=== PATIENT | female | born 1975 | race Caucasian/White ===

== ENCOUNTER 2018-05-28 23:54 | Inpatient (IN) | payer OTHER ==
[~2018-05-28] VITALS: Ht 162.6 cm; Wt 52.6 kg
[2018-05-29 00:45] LABS: BASO # 0.1 10^3/uL (0.0-0.2); BASO % 0.7 % (0.0-1.0); EOS % 0.1 % (0.0-3.0); HEMATOCRIT 29.9 % (36.0-47.0); HEMOGLOBIN 9.7 g/dl (12.0-15.5); LYMPH # 2.9 10^3/uL (1.5-4.5); LYMPH % 22.1 % (24.0-44.0); MEAN CORPUSCULAR HEMOGLOBIN 26.8 pg (27.0-33.0); MEAN CORPUSCULAR HGB CONC 32.4 g/dl (32.0-36.5); MEAN CORPUSCULAR VOLUME 82.6 fl (80.0-96.0); MONO # 1.7 10^3/uL (0.0-0.8); MONO % 13.4 % (0.0-5.0); NEUTROPHILS # 8.2 10^3/uL (1.8-7.7); NEUTROPHILS % 63.3 % (36.0-66.0); PLATELET COUNT, AUTOMATED 483 10^3/uL (150-450); RED BLOOD COUNT 3.62 10^6/uL (4.00-5.40); WHITE BLOOD COUNT 12.9 10^3/uL (4.0-10.0)
[2018-05-29 01:04] LABS: AMPHETAMINES LEVEL URINE NEGATIVE (NEGATIVE); BARBITURATES URINE NEGATIVE (NEGATIVE); BENZODIAZEPINES URINE POSITIVE (NEGATIVE); CANNABINOIDS URINE NEGATIVE (NEGATIVE); COCAINE METABOLITE URINE NEGATIVE (NEGATIVE); METHADONE URINE NEGATIVE (NEGATIVE); OPIATES URINE NEGATIVE (NEGATIVE); PHENCYCLIDINE URINE NEGATIVE (NEGATIVE)
[2018-05-29 01:11] LABS: ACETAMINOPHEN LEVEL < 2.0 UG/ML (10.0-30.0); ALBUMIN 4.1 GM/DL (3.2-5.2); ALT/SGPT 30 U/L (12-78); BILIRUBIN,DIRECT < 0.1 MG/DL (0.0-0.2); BILIRUBIN,TOTAL 0.3 MG/DL (0.2-1.0); BLOOD UREA NITROGEN 16 MG/DL (7-18); CALCIUM LEVEL 8.5 MG/DL (8.5-10.1); CARBON DIOXIDE LEVEL 19 MEQ/L (21-32); CHLORIDE LEVEL 104 MEQ/L (98-107); CPK CREATINE PHOSPHOKINASE 824 U/L (26-192); CREATININE FOR GFR 0.66 MG/DL (0.55-1.30); ETHYL ALCOHOL (ETHANOL) 0.298 % (0.000-0.010); GLOMERULAR FILTRATION RATE > 60.0 (>58); GLUCOSE, FASTING 88 MG/DL (70-100); POTASSIUM SERUM 3.5 MEQ/L (3.5-5.1); SALICYLATE LEVEL < 1.7 MG/DL (5.0-30.0); SODIUM LEVEL 139 MEQ/L (136-145); TOTAL PROTEIN 7.6 GM/DL (6.4-8.2)
[2018-05-29 01:15] LABS: HCG, SERUM QUALITATIVE NEGATIVE (NEGATIVE)
[2018-05-29] MEDS ORDERED: NS 1,000 ML IV ONE ×2 (02:00)
[2018-05-29] MEDS ORDERED: VITATAB73 PO (06:07)
[2018-05-29] MEDS ORDERED: HAIR1CHW PO (06:07)
[2018-05-29] MEDS ORDERED: KEPP1TAB PO (06:07)
[2018-05-29] MEDS ORDERED: VIST50CA PO (06:07)
[2018-05-29] MEDS ORDERED: VITA200016 PO (06:07)
[2018-05-29] MEDS ORDERED: LEXA1TAB PO (06:07)
[2018-05-29] MEDS ORDERED: BENA25TA10 PO (06:07)
[2018-05-29] MEDS ORDERED: levETIRAcetam 250MG TABLET (KEPPRA) PO ONE (07:30)
[2018-05-29] MEDS ORDERED: ESCITALOPRAM OXALATE 10 MG TAB (LEXAPRO) PO ONE (07:30)
[2018-05-29 08:56] LABS: BLOOD UREA NITROGEN 12 MG/DL (7-18); CALCIUM LEVEL 7.2 MG/DL (8.5-10.1); CARBON DIOXIDE LEVEL 24 MEQ/L (21-32); CHLORIDE LEVEL 111 MEQ/L (98-107); CPK CREATINE PHOSPHOKINASE 579 U/L (26-192); CREATININE FOR GFR 0.49 MG/DL (0.55-1.30); GLOMERULAR FILTRATION RATE > 60.0 (>58); GLUCOSE, FASTING 83 MG/DL (70-100); POTASSIUM SERUM 3.7 MEQ/L (3.5-5.1); SODIUM LEVEL 143 MEQ/L (136-145); TROPONIN I < 0.02 NG/ML (< 0.10)
[2018-05-29] MEDS ORDERED: THIAMINE 100 MG TAB PO SCH ×2 (09:00→21:00)
[2018-05-29] MEDS ORDERED: FOLIC ACID 1 MG TAB PO SCH (09:00)
[2018-05-29] MEDS ORDERED: MULTIVITAMINS/MINERALS THERAP 1 TAB PO SCH (09:00)
[2018-05-29] MEDS ORDERED: levETIRAcetam 250MG TABLET (KEPPRA) PO SCH (09:00)
[2018-05-29] MEDS ORDERED: ESCITALOPRAM OXALATE 10 MG TAB (LEXAPRO) PO SCH (09:00)
[2018-05-29] MEDS ORDERED: LORazepam 2 MG TAB PO PRN ×2 (09:30→13:45)
[2018-05-29] MEDS ORDERED: SENN18TA PO (13:06)
[2018-05-29] MEDS ORDERED: MILK120011 PO (13:06)
[2018-05-29] MEDS ORDERED: COLA100C5 PO (13:06)
[2018-05-29] MEDS ORDERED: CYCL10TA PO (13:06)
[2018-05-29] MEDS ORDERED: LACT10SO29 PO (13:06)
[2018-05-29] MEDS ORDERED: MAALOX 30 ML SUSP *UDC PO PRN (13:15)
[2018-05-29] MEDS: VITAMIN D 1,000 INTERNATIONAL UNITS TABLET PO SCH (14:47)
[2018-05-29 15:30] VITALS: BP 123/77
--- NOTE | 2018-05-29 19:12 | ECGEPIP ---
Stationary ECG Study [facility] - ED Test Date: 2018-05-29 Pat Name: KAILYN NEWMAN Department: Room: - Gender: F Acute Care Nurse Practitioner: af : 1975 Requested By: HERON AVALOS Order Number: [id number] Reading MD: Armond Trujillo Measurements Intervals [place] Rate: 109 P: 65 UT: 154 QRS: 53 QRSD: 87 T: 50 QT: 371 QTc: 501 Interpretive Statements SINUS TACHYCARDIA NONSPECIFIC T-WAVE ABNORMALITY ABNORMAL RHYTHM ECG PROLONGED QTC NO OLD ECG Electronically Signed On 05-29-2018 19:12:31 EST by Armond Trujillo
[2018-05-29] MEDS ORDERED: IBUPROFEN 600 MG TAB PO PRN (19:15)
[2018-05-29] MEDS ORDERED: LACTULOSE 20 GM/30 ML SYRUP UD PO PRN (19:15)
[2018-05-29] MEDS: CYCLOBENZAPRINE 10 MG TAB PO SCH (20:18)
[2018-05-29] MEDS: diphenhydrAMINE 25 MG CAP PO SCH (20:18)
[2018-05-29] MEDS: THIAMINE 100 MG TAB PO SCH (20:18)
[2018-05-29] MEDS: SENNA 8.6 MG TAB (SENOKOT) PO SCH (20:18)
[2018-05-29] MEDS: levETIRAcetam 250MG TABLET (KEPPRA) PO SCH (20:18)
[2018-05-29] MEDS: DOCUSATE SODIUM 100 MG CAP PO SCH (20:18)
[2018-05-29] MEDS: MOM 30ML SUSPENSION UDC PO PRN (20:22)
[2018-05-30 03:43] VITALS: BP 120/80
[2018-05-30 06:49] VITALS: BP 116/80
[2018-05-30] MEDS ORDERED: MULTIVITAMINS/MINERALS THERAP 1 TAB PO SCH ×2 (09:00)
[2018-05-30] MEDS ORDERED: ESCITALOPRAM OXALATE 10 MG TAB (LEXAPRO) PO SCH ×2 (09:00)
[2018-05-30] MEDS ORDERED: FOLIC ACID 1 MG TAB PO SCH (09:00)
[2018-05-30] MEDS ORDERED: INFLUENZA QUADRIVALENT PF VACCINE 0.5ML SYRINGE (90686) IM ONE (09:00)
[2018-05-30] MEDS: FOLIC ACID 1 MG TAB PO SCH (10:38)
[2018-05-30] MEDS: MULTIVITAMINS/MINERALS THERAP 1 TAB PO SCH (10:38)
[2018-05-30] MEDS: DOCUSATE SODIUM 100 MG CAP PO SCH ×2 (10:38→20:28)
[2018-05-30] MEDS: levETIRAcetam 250MG TABLET (KEPPRA) PO SCH ×2 (10:39→20:27)
[2018-05-30] MEDS: THIAMINE 100 MG TAB PO SCH ×2 (10:39→20:28)
[2018-05-30] MEDS: CYCLOBENZAPRINE 10 MG TAB PO SCH ×2 (10:39→20:28)
[2018-05-30] MEDS: VITAMIN D 1,000 INTERNATIONAL UNITS TABLET PO SCH (10:39)
[2018-05-30] MEDS: SENNA 8.6 MG TAB (SENOKOT) PO SCH ×2 (10:43→20:27)
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
[2018-05-30 13:00] VITALS: BP 101/64
[2018-05-30 14:35] LABS: ALBUMIN 3.7 GM/DL (3.2-5.2); ALT/SGPT 28 U/L (12-78); BILIRUBIN,TOTAL 0.4 MG/DL (0.2-1.0); BLOOD UREA NITROGEN 11 MG/DL (7-18); CALCIUM LEVEL 8.2 MG/DL (8.5-10.1); CARBON DIOXIDE LEVEL 28 MEQ/L (21-32); CHLORIDE LEVEL 104 MEQ/L (98-107); CREATININE FOR GFR 0.59 MG/DL (0.55-1.30); GLOMERULAR FILTRATION RATE > 60.0 (>58); GLUCOSE, FASTING 101 MG/DL (70-100); POTASSIUM SERUM 4.1 MEQ/L (3.5-5.1); SODIUM LEVEL 139 MEQ/L (136-145); TOTAL PROTEIN 7.2 GM/DL (6.4-8.2)
[2018-05-30 18:09] VITALS: BP 101/64
[2018-05-30] MEDS: MOM 30ML SUSPENSION UDC PO PRN (20:27)
[2018-05-30] MEDS: diphenhydrAMINE 25 MG CAP PO SCH (20:28)
[2018-05-30] MEDS: BACITRACIN OINT 30GM TOP SCH (21:00)
[2018-05-30 22:31] VITALS: BP 112/88
[2018-05-31 06:00] VITALS: BP 101/60
[2018-05-31] MEDS: SENNA 8.6 MG TAB (SENOKOT) PO SCH (08:07)
[2018-05-31] MEDS: VITAMIN D 1,000 INTERNATIONAL UNITS TABLET PO SCH (08:07)
[2018-05-31] MEDS: FOLIC ACID 1 MG TAB PO SCH (08:07)
[2018-05-31] MEDS: DOCUSATE SODIUM 100 MG CAP PO SCH (08:07)
[2018-05-31] MEDS: levETIRAcetam 250MG TABLET (KEPPRA) PO SCH (08:07)
[2018-05-31] MEDS: CYCLOBENZAPRINE 10 MG TAB PO SCH (08:07)
[2018-05-31] MEDS: THIAMINE 100 MG TAB PO SCH (08:07)
[2018-05-31] MEDS: MULTIVITAMINS/MINERALS THERAP 1 TAB PO SCH (08:07)
[2018-05-31] MEDS: BACITRACIN OINT 30GM TOP SCH (08:08)
[2018-05-31 08:37] LABS: ALBUMIN 3.8 GM/DL (3.2-5.2); ALT/SGPT 29 U/L (12-78); BILIRUBIN,TOTAL 0.3 MG/DL (0.2-1.0); BLOOD UREA NITROGEN 10 MG/DL (7-18); CALCIUM LEVEL 8.9 MG/DL (8.5-10.1); CARBON DIOXIDE LEVEL 30 MEQ/L (21-32); CHLORIDE LEVEL 102 MEQ/L (98-107); CPK CREATINE PHOSPHOKINASE 185 U/L (26-192); CREATININE FOR GFR 0.58 MG/DL (0.55-1.30); FERRITIN 16 NG/ML (8-252); GLOMERULAR FILTRATION RATE > 60.0 (>58); GLUCOSE, FASTING 90 MG/DL (70-100); IRON (FE) 26 UG/DL (50-170); PERCENT SATURATION 6.5 % (13.2-45.0); POTASSIUM SERUM 3.9 MEQ/L (3.5-5.1); SODIUM LEVEL 139 MEQ/L (136-145); TOTAL IRON BINDING CAPACITY 400 UG/DL (250-450); TOTAL PROTEIN 7.2 GM/DL (6.4-8.2)
[2018-05-31] MEDS ORDERED: ESCITALOPRAM OXALATE 10 MG TAB (LEXAPRO) PO SCH (09:00)
[2018-05-31 10:54] LABS: BASO % 0.7 % (0.0-1.0); EOS # 0.3 10^3/uL (0.0-0.50); EOS % 5.2 % (0.0-3.0); HEMATOCRIT 31.8 % (36.0-47.0); LYMPH # 1.7 10^3/uL (1.5-4.5); LYMPH % 29.4 % (24.0-44.0); MEAN CORPUSCULAR HEMOGLOBIN 26.1 pg (27.0-33.0); MEAN CORPUSCULAR HGB CONC 31.4 g/dl (32.0-36.5); MONO # 1.1 10^3/uL (0.0-0.8); MONO % 18.8 % (0.0-5.0); NEUTROPHILS # 2.7 10^3/uL (1.8-7.7); NEUTROPHILS % 45.7 % (36.0-66.0); PLATELET COUNT, AUTOMATED 488 10^3/uL (150-450); RED BLOOD COUNT 3.83 10^6/uL (4.00-5.40); WHITE BLOOD COUNT 5.9 10^3/uL (4.0-10.0)
--- NOTE | 2018-05-31 11:41 | MHIPNPDOC ---
[facility] Progress Note Progress Note error, delete note Vital Signs Vital Signs Date Time Temp Pulse Resp B/P (MAP) Pulse Ox O2 Delivery O2 Flow Rate FiO2 05/31/18 06:00 92 101/60 05/31/18 06:00 97.9 16 99 05/29/18 14:16 Room Air Laboratory Data 24H Labs Laboratory Tests 2 05/30/18 13:00: Anion Gap 7L, Glomerular Filtration Rate > 60.0, Blood Urea Nitrogen 11, Creatinine 0.59, Sodium Level 139, Potassium Level 4.1, Chloride Level 104, Carb on Dioxide Level 28, Calcium Level 8.2L, Aspartate Amino Transf (AST/SGOT) 25, Alanine Aminotransferase (ALT/SGPT) 28, Alkaline Phosphatase 72, Total Bilirubin 0.4, Total Protein 7.2, Albumin 3.7, Albumin/Globulin Ratio 1.06 05/31/18 07:40: Anion Gap 7L, Glomerular Filtration Rate > 60.0, Blood Urea Nitrogen 10, Creatinine 0.58, Sodium Level 139, Potassium Level 3.9, Chloride Level 102, Carbon Dioxide Level 30, Calcium Level 8.9, Aspartate Amino Transf (AST/SGOT) 24, Alanine Aminotransferase (ALT/SGPT) 29, Alkaline Phosphatase 73, Total Bilirubin 0.3, Total Protein 7.2, Albumin 3.8, Albumin/Globulin Ratio 1.12, Immature Granulocyte % (Auto) 0.2, White Blood Count 5.9, Red Blood Count 3.83L, Hemoglobin 10.0L, Hematocrit 31.8L, Mean Corpuscular Volume 83.0, Mean Corpuscul ar Hemoglobin 26.1L, Mean Corpuscular Hemoglobin Concent 31.4L, Red Cell Distribution Width 18.3H, Platelet Count 488H, Neutrophils (%) (Auto) 45.7, Lymphocytes (%) (Auto) 29.4, Monocytes (%) (Auto) 18.8H, Eosinophils (%) (Auto) 5.2H, Basophils (%) (Auto) 0.7, Neutrophils # (Auto) 2.7, Lymphocytes # (Auto) 1.7, Monocytes # (Auto) 1.1H, Eosinophils # (Auto) 0.3, Basophils # (Auto) 0.0, Nucleated Red Blood Cells % (auto) 0.0, Lactic Acid Level 0.8, Total Creatine Kinase 185, Iron Level 26L, Total Iron Binding Capacity 400, Transferrin % Saturation 6.5L, Ferritin 16 CBC/BMP Laboratory Tests 05/30/18 13:00 Calcium Level 8.2 L, Aspartate Amino Transf (AST/SGOT) 25, Alanine Am inotransferase (ALT/SGPT) 28, Alkaline Phosphatase 72, Total Bilirubin 0.4, Total Protein 7.2, Albumin 3.7 05/31/18 07:40 Calcium Level 8.9, Aspartate Amino Transf (AST/SGOT) 24, Alanine Aminotransferase (ALT/SGPT) 29, Alkaline Phosphatase 73, Total Bilirubin 0.3, Total Protein 7.2, Albumin 3.8, Red Blood Count 3.83 L, Mean Corpuscular Volume 83.0, Mean Corpuscular Hemoglobin 26.1 L, Mean Corpuscular Hemoglobin Concent 31.4 L, Red Cell Distribution Width 18.3 H, Neutrophils (%) (Auto) 45.7, Lymphocytes (%) (Auto) 29.4, Monocytes (%) (Auto) 18.8 H, Eosinophils (%) (Auto) 5.2 H, Basophils (%) (Auto) 0.7, Neutrophils # (Auto) 2.7, Lymphocytes # (Auto) 1.7, Monocytes # (Auto) 1.1 H, Eosinophils # (Auto) 0.3, Basophils # (Auto) 0.0, Total Creatine Kinase 185 Current Medications Current Medications Al Hydrox/Mg Hydrox/Simethicone (Mylanta) 30 ml Q4HP PRN PO HEARTBURN/INDIGESTION; Start 05/29/18 at 13:15 Aripiprazole (AbiLIFY) 2.5 mg QHS PO Last administered on 05/30/18 20:28; Start 05/30/18 at 21:00 Bacitracin (Bacitracin Oint) to burn on right in... BID TOP Last administered on 05/31/18 08:08; Start 05/30/18 at 21:00 Cyclobenzaprine HCl (Flexeril) 10 mg BID PO Last administered on 05/31/18 08:07; Start 05/29/18 at 21:00 Diphenhydramine HCl (Benadryl) 100 mg QHS PO Last administered on 05/30/18 20:28; Start 05/29/18 at 21:00 Docusate Sodium (Colace) 100 mg BID PO Last administered on 05/31/18at 08:07; Start 05/29/18 at 21:00 Escitalopram Oxalate (Lexapro) 10 mg DAILY PO ; Start 05/29/18 at 09:00; Stop 05/29/18 at 13:25; Status DC Escitalopram Oxalate (Lexapro) 10 mg DAILY PO ; Start 05/30/18 at 09:00; Stop 05/30/18 at 09:00; Status DC Escitalopram Oxalate (Lexapro) 10 mg DAILY PO Last administered on 05/31/18at 08 :07; Start 05/31/18 at 09:00 Escitalopram Oxalate (Lexapro) 20 mg DAILY PO Last administered on 05/30/18at 10:39; Start 05/30/18 at 09:00; Stop 05/30/18 at 12:22; Status DC Folic Acid (Folic Acid) 1 mg DAILY PO Last administered on 05/29/18at 10:41; Start 05/29/18 at 09:00; Stop 05/29/18 at 13:40; Status DC Folic Acid (Folic Acid) 1 mg DAILY PO ; Start 05/30/18 at 09:00; Stop 05/30/18 at 09:00; Status DC Folic Acid (Folic Acid) 1 mg DAILY PO Last administered on 05/31/18at 08:07; Start 05/30/18 at 09:00 Home Med (Med Rec Complete!) ASDIRECTED XX ; Start 05/29/18 at 13:15; Stop 05/29/18 at 13:15; Status DC Ibuprofen (Advil) 600 mg Q6HP PRN PO MODERATE PAIN (PS 5-7); Start 05/29/18 at 19:15 Lactulose (Cephulac) 30 ml DAILY PRN PO CONSTIPATION; Start 05/29/18 at 19:15 Levetiracetam (Keppra) 500 mg BID PO ; Start 05/29/18 at 09:00; Stop 05/29/18 at 13:25; Status DC Levetiracetam (Keppra) 500 mg BID PO Last administered on 05/31/18at 08:07; Start 05/29/18 at 21:00 Lorazepam (Ativan) 2 mg ASDIRECTED PRN PO SEE PROTOCOL; Start 05/29/18 at 09:30; Stop 05/29/18 at 13:41; Status DC Lorazepam (Ativan) 2 mg ASDIRECTED PRN PO SEE PROTOCOL; Start 05/29/18 at 13:45 Magnesium Hydroxide (Milk Of Magnesia) 30 ml DAILYPRN PRN PO CONSTIPATION Last administered on 05/30/18at 20:27; Start 05/29/18 at 13:15 Multivitamins (Theragram-M) 1 tab DAILY PO ; Start 05/29/18 at 09:00; Stop 05/29/18 at 13:40; Status DC Multivitamins (Theragram-M) 1 tab DAILY PO ; Start 05/30/18 at 09:00; Stop 05/30/18 at 09:00; Status DC Multivitamins (Theragram-M) 1 tab DAILY PO ; Start 05/30/18 at 09:00; Stop 05/30/18 at 09:00; Status DC Multivitamins (Theragram-M) 1 tab DAILY PO Last administered on 05/31/18at 08:07; Start 05/30/18 at 09:00 Senna (Senokot) 1 tab BID PO Last administered on 05/31/18at 08:07; Start 05/29/18 at 21:00 Thiamine HCl (Thiamine HCl) 100 mg BID PO Last administered on 05/29/18at 10:41; Start 05/29/18 at 09:00; Stop 05/29/18 at 13:39; Status DC Thiamine HCl (Thiamine HCl) 100 mg BID PO ; Start 05/29/18 at 21:00; Stop 05/29/18 at 21:00; Status DC Thiamine HCl (Thiamine HCl) 100 mg BID PO Last administered on 05/31/18at 08:07; Start 05/29/18 at 21:00; Stop 06/01/18 at 20:59 Vitamin D (Vitamin D) 2,000 units DAILY PO Last administered on 05/31/18at 08:07; Start 05/29/18 at 09:00 Allergies Coded Allergies: Acetaminophen (Verified Allergy, Severe, anaphylaxis, 05/29/18) CAN TAKE SEPERATE FROM EXCEDRIN Aspirin (Verified Allergy, Severe, anaphylaxis, 05/29/18) CAN TAKE SEPERATE FROM EXCEDRIN Caffeine (Verified Allergy, Severe, anaphylaxis, 05/29/18) CAN TAKE SEPERATE FROM EXCEDRIN GARCIA,AMANDA E. DO May 31, 2018 11:22 am
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
[2018-05-31] MEDS ORDERED: ESCI10TA2 PO (11:53)
[2018-05-31] MEDS ORDERED: ARIP5TA PO (11:53)
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
--- NOTE | 2018-06-01 07:32 | ECGEPIP ---
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
== END 2018-05-31 16:00 | disposition home or self-care (01) | DRG 751 ==
LOC: M ED 23:54 → EDBD 23:54 → M ED INP 05-29 13:10 → M PSY 05-29 14:39
PROVIDERS: ADMIT Psychiatry & Neurology Psychiatry; ATTEND Psychiatry & Neurology Psychiatry
DX: F33.9 Major depressive disorder, recurrent, unspecified (principal); F41.9 Anxiety disorder, unspecified; F10.10 Alcohol abuse, uncomplicated; F43.10 Post-traumatic stress disorder, unspecified; Z79.899 Other long term (current) drug therapy; Z88.6 Allergy status to analgesic agent; Z15.01 Genetic susceptibility to malignant neoplasm of breast; Z91.09 Other allergy status, other than to drugs and biological substances